=== PATIENT | male | born 1975 | race Caucasian/White ===

== ENCOUNTER 2023-07-16 12:44 | Emergency (ER) | payer BC, MEDICAID, SELFPAY ==
[2023-07-16 12:59] VITALS: BP 144/95; PULSE 111; RESP 16; TEMP 36.6; O2SAT 95
--- NOTE | 2023-07-16 13:03 | USR_ITS ---
PROCEDURE INFORMATION: Exam: US Duplex Left Lower Extremity Veins, Limited Exam date and time: 07/16/2023 2:03 PM Age: 48 years old Clinical indication: Pain; Leg, lower; Left; Additional info: Pain swelling TECHNIQUE: Imaging protocol: Real-time duplex ultrasound of the left extremity with 2-D hemphill scale, color Doppler flow and spectral waveform analysis including responses to compression and other maneuvers (when performed) with image documentation. Limited exam focused on the left lower extremity veins. COMPARISON: No relevant prior studies available. FINDINGS: Left deep veins: Unremarkable. The common femoral, femoral, proximal profunda femoral and popliteal veins are patent without thrombus. Normal Doppler waveforms. Normal compressibility and/or augmentation response. Superficial veins: Greater saphenous vein at the saphenofemoral junction is patent without thrombus. Soft tissues: Unremarkable. US/CV venous duplex [facility] [id number] IMPRESSION: No evidence of deep vein thrombosis.
--- NOTE | 2023-07-16 13:41 | ED_ITS ---
HPI - Extremity Problem 2 General: Chief complaint: Extremity Problem,Nontraumatic Stated complaint: left leg pain Time Seen by Provider: 07/16/23 13:39 History of Present Illness: Patient comes in today with increased pain and swelling to the left lower leg. Patient has endorsed a fever last night. Patient felt that he might have a flare of cellulitis. Patient is morbidly obese. Patient denies any chronic medical problems. Patient has been dieting in order to lose weight and to prevent diabetes. Patient reports no routine [id number] medications. Patient did take some aspirin this morning. Review of Systems 2 General: Reports: 10 or more systems reviewed and unremarkable except in HPI and below Musc: Reports: extremity pain and extremity swelling Physical Exam 2 Const: COMMON NORMALS: alert HENMT: COMMON NORMALS: normocephalic HEAD & SCALP: normocephalic Neck/C-Spine: COMMON NORMALS: full ROM Resp: COMMON NORMALS: normal respiratory effort Cardio: COMMON NORMALS: regular rate and regular rhythm RATE: regular rate RHYTHM: regular rhythm GI: COMMON NORMALS: Soft to palpation PALPATION: Yes Soft to palpation : COMMON NORMALS: Yes no CVA tenderness BLADDER/KIDNEY EXAM: Yes no CVA tenderness Back/Pelvis: COMMON NORMALS: no CVA tenderness and thoracic and lumbar spine normal to inspection Extremity: LEFT LOWER EXTREMITY: Yes lower leg (Discoloration left lower leg, calf tenderness) Left lower leg: Yes inspection, Yes palpation (Posterior induration) and Yes neurovascular exam Neuro: SENSORIUM/ORIENTATION: Yes alert Skin: NARRATIVE SKIN EXAM: Redness left lower leg. Course 2 Vital Signs: Vital signs: Vital Signs Temperature 98 F 07/16/23 12:59 Pulse Rate 111 H 07/16/23 12:59 Respiratory Rate 16 07/16/23 12:59 Blood Pressure 144/95 07/16/23 12:59 Pulse Oximetry 95 07/16/23 12:59 Oxygen Delivery Me thod Room Air 07/16/23 12:59 MDM - Extremity (Nontraumatic) Medical Decision Making 48-year-old male patient comes in today with increased swelling and redness to the left lower leg. On exam patient appears nontoxic. Patient moves all extremities well. Pulses are intact distally. Skin is warm and dry. Vital signs normal. Differential diagnosis includes not limited to cellulitis, DVT, dependent edema, gout. Ultrasound extremity was negative for DVT. CBC, CMP was unremarkable. CRP was 109. Uric acid was 6.5. Patient appears to have a cellulitis in his left lower leg. Encourage patient to elevate the leg is much as possible. Patient will be started on antibiotics Augmentin 1 tablet 3 times a day for the next 10 days. Patient was recommended to follow-up or return to the ER for worsening symptoms. Lab Data 07/16/23 14:29 07/16/23 14:29 Radiology Impressions Venous Duplex 07/16/23 13:03 IMPRESSION: No evidence of deep vein thrombosis. Laboratory Results WBC 9.46 10^3/uL (3.29-11.43) 07/16/23 14:29 RBC 5.59 10^6/uL (3.85-5.65) 07/16/23 14:29 Hgb 16.10 g/dL (11.27-16.99) 07/16/23 14:29 Hct 48.6 % (37-53) 07/16/23 14:29 MCV 86.9 fl (82-101) 07/16/23 14:29 MCH 28.8 pg (27-33) 07/16/23 14:29 MCHC 33.1 g/dL (30-55) 07/16/23 14:29 RDW 13.2 % (12.1-15.1) 07/16/23 14:29 Plt Count 239 10^3/cmm (157-399) 07/16/23 14:29 MPV 9.3 fL (7.4-10.4) 07/16/23 14:29 Neut % (Auto) 71.6 % 07/16/23 14:29 Lymph % (Auto) 16.9 % 07/16/23 14:29 [place] % (Auto) 10.3 % 07/16/23 14:29 Eos % (Auto) 0.5 % 07/16/23 14:29 Baso % (Auto) 0.3 % 07/16/23 14:29 Neut # (Auto) 6.77 10^3/uL (1.8-7.7) 07/16/23 14:29 Lymph # (Auto) 1.6 10^3/uL (0.8-4.8) 07/16/23 14:29 [place] # (Auto) 1.0 10^3/uL (0.2-0.9) H 07/16/23 14:29 Eos # (Auto) 0.1 10^3/uL (0.0-0.8) 07/16/23 14: Baso # (Auto) 0.0 10^3/uL (0.0-0.1) 07/16/23 14:29 Nucleated RBC % (auto) 0 % 07/16/23 14: Nucleated RBCs # 0.0 /100WBC 07/16/23 14:29 Sodium 139 mmol/L (136-145) 07/16/23 14:29 Potassium 4.3 mmol/L (3.5-5.1) 07/16/23 14:29 Chloride 103 mmol/L (98-107) 07/16/23 14: Carbon Dioxide 26 mmol/L (22-29) 07/16/23 14: Anion Gap 14.3 (5-19) 07/16/23 14: BUN 16 mg/dL (6-20) 07/16/23 14:29 Creatinine 0.8 mg/dL (0.7-1.2) 07/16/23 14:29 GFR Calculation 103.6 mL/min (90-130) 07/16/23 14: Glucose 155 mg/dL (65-115) H 07/16/23 14: Calculated Osmolality 292 mOsm/kg (285-295) 07/16/23 14:29 Uric Acid 6.5 mg/dL (3.4-7.0) 07/16/23 14: Calcium 8.7 mg/dL (8.5-10.5) 07/16/23 14:29 Total Bilirubin 1.0 mg/dL (0.15-1.2) 07/16/23 14:29 AST 14 U/L (0-40) 07/16/23 14:29 ALT 25 U/L (0-41) 07/16/23 14:29 Alkaline Phosphatase 82 U/L (40-130) 07/16/23 14:29 C-Reactive Protein 109.0 mg/L (0.0-4.9) H 07/16/23 14:29 Total Protein 7.5 g/dL (6.6-8.7) 07/16/23 14: Albumin 3.9 g/dL (3.5-5.2) 07/16/23 14:29 Globulin 3.6 g/dL (1.3-4.6) 07/16/23 14:29 All radiology interpretation(s) finalized by discharge Discharge Plan Discharge Patient Disposition: Home Clinical Impression: Cellulitis Qualifiers: Site of cellulitis: extremity Site of cellulitis of extremity: lower extremity Laterality: left Qualified Code(s): L03.116 - Cellulitis of left lower limb Condition: Stable Prescriptions: New amoxicillin-pot clavulanate 875-125 mg tablet 1 tab PO Q8H Qty: 30 0RF hydrocodone-acetaminophen 5-325 mg tablet 1 tab PO Q8H PRN (Reason: pain) Qty: 6 0RF Discharge Orders: Discharge ED (Routine); Ordered 07/16/23 Ordered By: Rashard Johnson Discharge Diet: Usual diet Discharge Activity: Increase activity as tolerated Patient Instructions: Cellulitis (ED) Activity Restrictions/Additional Instructions: Elevate leg is much as possible. This will help the swelling and redness resolves faster. Take antibiotics as directed. Drink plenty of water and fluids. Follow-up with primary care in 1 week for recheck. Do not use hydrocodone if driving or operating machinery that may put yourself or others at danger. You should wait at least 8 hours before doing these activities after taking hydrocodone. Take antibiotic as directed. You can use acetaminophen and ibuprofen for pain. Return to ER for worsening symptoms such as shortness of breath, chest pain, or increasing redness and swelling to the extremity along with fever greater than 100.4. 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
[2023-07-16 14:59] LABS: Basophils % 0.3 %; Eosinophils # 0.1 10^3/uL (0.0-0.8); Eosinophils % 0.5 %; Hematocrit 48.6 % (37-53); Lymphocytes # 1.6 10^3/uL (0.8-4.8); Lymphocytes % 16.9 %; Mean Corpuscular HGB Conc 33.1 g/dL (30-55); Mean Corpuscular Hemoglobin 28.8 pg (27-33); Mean Corpuscular Volume 86.9 fl (82-101); Mean Platelet Volume 9.3 fL (7.4-10.4); Monocytes % 10.3 %; Neutrophils # 6.77 10^3/uL (1.8-7.7); Neutrophils % 71.6 %; Nucleated Red Blood Cells % 0 %; Platelet Count 239 10^3/cmm (157-399); Red Blood Count 5.59 10^6/uL (3.85-5.65); Red Cell Distribution Width 13.2 % (12.1-15.1); White Blood Count 9.46 10^3/uL (3.29-11.43)
[2023-07-16 15:27] LABS: Alanine Aminotransferase 25 U/L (0-41); Albumin Level 3.9 g/dL (3.5-5.2); Alkaline Phosphatase 82 U/L (40-130); Anion Gap 14.3 (5-19); Aspartate Amino Transferase 14 U/L (0-40); Blood Urea Nitrogen 16 mg/dL (6-20); Calcium 8.7 mg/dL (8.5-10.5); Carbon Dioxide 26 mmol/L (22-29); Chloride 103 mmol/L (98-107); Creatinine Clr Calc Pharmacy 204.4256; Globulin 3.6 g/dL (1.3-4.6); Glomerular Filtration Rate 103.6 mL/min (90-130); Glucose 155 mg/dL (65-115); Osmolality Calculated 292 mOsm/kg (285-295); Potassium 4.3 mmol/L (3.5-5.1); Sodium 139 mmol/L (136-145); Total Protein 7.5 g/dL (6.6-8.7); Uric Acid 6.5 mg/dL (3.4-7.0)
[2023-07-16] MEDS: HYDROcodone-acetaminophen 7.5-325 mg Tablet 1 TAB PO (15:48)
[2023-07-16] MEDS: cefTRIAXone 1,000 MG in water for injection-sterile 2.1 ML 2.10000000000000009 MG IM (15:52)
[2023-07-16 15:58] VITALS: BP 170/116; PULSE 98; RESP 16; TEMP 36.6; O2SAT 98
== END 2023-07-16 15:59 | disposition home or self-care (01) ==
PROVIDERS: Emergency Provider Nurse Practitioner Family
DX: L03.116 Cellulitis of left lower limb (principal)
CPT/HCPCS: 36415; 80053; 84550; 85025; 86140; 93971; 96372; 99284; J0696

== ENCOUNTER 2023-08-17 00:35 | Emergency (ER) | payer BC, MEDICAID, SELFPAY ==
[2023-08-17 00:40] VITALS: BP 196/118; PULSE 120; RESP 22; TEMP 36.7; O2SAT 92; BMI 53.8
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
[2023-08-17 01:14] VITALS: BP 182/109; PULSE 108; O2SAT 90
[2023-08-17] MEDS: amoxicillin-clav 875-125 mg Tablet 1 TAB PO (01:31)
[2023-08-17] MEDS: tetanus-diphtheria tox (adult) 0.5 mL SYRINGE IM (01:31)
[2023-08-17 01:35] VITALS: BP 168/78; PULSE 106; O2SAT 93
[2023-08-17 02:00] VITALS: BP 168/78; PULSE 103; RESP 16; O2SAT 90
== END 2023-08-17 01:56 | disposition home or self-care (01) ==
PROVIDERS: Emergency Provider Emergency Medicine
DX: S50.811A Abrasion of right forearm, initial encounter (principal); Y04.0XXA Assault by unarmed brawl or fight, initial encounter; Y92.149 Unspecified place in prison as the place of occurrence of the external cause; Y99.0 Civilian activity done for income or pay; Z23 Encounter for immunization
CPT/HCPCS: 90471; 90714; 99283